=== PATIENT | female | born 1960 | race Caucasian/White ===

== ENCOUNTER 2021-02-21 19:36 | Emergency (ER) | payer SELFPAY ==
[~2021-02-21] VITALS: Ht 162.6 cm; Wt 62.6 kg
[2021-02-21 19:54] VITALS: BP_SYST 129
--- NOTE | 2021-02-21 20:02 | NUR ---
[place] Officer in custody for medical clearance. Patient to ER bed ch1 to [facility] for evaluation. Side rails up.Written and verbal consent obtained from patient for blood alcohol, name and verified by patient. Disinfected patient's skin with that did not contain alcohol or other volatile organic compound. Collected the blood from the subject named by venipuncture, in the presence of Officer Sims. Used a sterile, dry hypodermic needle and dry vacuum blood collection. Two dry vacuum blood collection was supplied by the officer named above. Withdrew a specimen of blood from left forearm of the subject named above. Inverted both blood tubes several times to ensure that the preservative and anticoagulant were thoroughly mixed in the blood specimen. I initialed both blood tube labels for identification. The labeled blood tubes were handed directly to the Officer named above. The blood tubes stopper remained in place while I had possession of the blood tubes. The Officer placed tubes into envelope and sealed it in my presence. Envelope initialed by myself and Officer named above. Patient tolerated well, bandage applied, and bleeding controlled.
[2021-02-21 20:27] VITALS: BP_SYST 92
--- NOTE | 2021-02-21 20:27 | NUR ---
Patient given written and verbal discharge instructions and verbalizes understanding. ER MD discussed with patient the results and treatment provided. Patient in stable condition. Opportunity for questions provided and answered. Medication side effect fact sheet provided.
== END 2021-02-21 20:27 ==
LOC: SED 19:36
DX: Z02.89 Encounter for other administrative examinations (principal); F12.90 Cannabis use, unspecified, uncomplicated; Z88.6 Allergy status to analgesic agent; Z90.49 Acquired absence of other specified parts of digestive tract
CPT/HCPCS: 99283